=== PATIENT | female | born 1995 | race Caucasian/White ===

== ENCOUNTER 2017-01-02 07:38 | Emergency (ER) | payer OTHER ==
[~2017-01-02] VITALS: Ht 165.1 cm; Wt 80.0 kg
[2017-01-02 07:40] VITALS: Ht 165.1 cm; Wt 80.0 kg
[2017-01-02 08:08] LABS: URINE BLOOD (Dip) POC 3+ (NEGATIVE)
[2017-01-02] MEDS ORDERED: PHEN-538 PO (08:17)
[2017-01-02] MEDS ORDERED: CEPH-443 PO (08:17)
--- NOTE | 2017-01-02 08:20 | ERD ---
ER Documentation Chief Complaint Date/Time DATE: 01/02/17 TIME: 08:19 Chief Complaint dysuria x 2 days HPI This 21-year-old female presents with dysuria for last 2 days. She denies fevers, vomiting, abdominal pain, flank pain. She denies vaginal discharge or pelvic pain except mild suprapubic pain. She denies any concern for STDs or known or suspected exposures ROS All systems reviewed and are negative except as per history of present illness. Medications Home Meds Active Scripts Phenazopyridine Hcl* (Pyridium*) 200 Mg Tab, 200 MG PO TID Y for URINARY PAIN, # 6 TAB Prov:BRADEN MORALES MD 01/02/17 Cephalexin* (Keflex*) 500 Mg Capsule, 500 MG PO QID for 5 Days, CAP Prov:BRADEN MORALES MD 01/02/17 Allergies Allergies: Coded Allergies: Amoxicillin (Verified Allergy, 06/20/13) Sulfa (Sulfonamide Antibiotics) (Verified Allergy, 06/20/13) Uncoded Allergies: NELDICON (Allergy, 06/20/13) RONDEC (Allergy, 06/20/13) PMhx/Soc Medical and Surgical Hx: pt denies Medical Hx, pt denies Surgical Hx History of Surgery: No Anesthesia Reaction: No Hx Neurological Disorder: No Hx Respiratory Disorders: No Hx Cardiac Disorders: No Hx Psychiatric Problems: No Hx Miscellaneous Medical Probl: No Hx Alcohol Use: No Hx Substance Use: No Hx Tobacco Use: No Physical Exam Vitals Vital Signs Date Time Temp Pulse Resp B/P Pulse Ox O2 Delivery O2 Flow Rate FiO2 01/02/17 07:40 97.8 68 18 118/58 99 Physical Exam Const: [] Alert, [id number] per Head: Atraumatic Eyes: Normal Conjunctiva ENT: Normal External Ears, Nose and Mouth. Neck: Full range of motion..~ No meningismus. Resp: Clear to auscultation bilaterally Cardio: Regular rate and rhythm, no murmurs Abd: Soft, non tender, non distended. Normal bowel sounds Skin: No petechiae or rashes Back: No midline or flank tenderness Ext: No cyanosis, or edema Neur: Awake and alert Psych: Normal Mood and Affect Results 24 hrs Laboratory Tests Test 01/02/17 08:11 Bedside Urine pH (LAB) 6.0 Bedside Urine Protein (LAB) 2+ Bedside Urine Glucose (UA) Negative Bedside Urine Ketones (LAB) Negative Bedside Urine Blood 3+ Bedside Urine Nitrite (LAB) Positive Bedside Urine Leukocyte Esterase (L 1+ Current Medications Medications (Trade) Dose Ordered Sig/Cyrus Route PRN Reason Start Time Stop Time Status Last Admin Dose Admin Cephalexin (Keflex) 500 mg ONCE ONCE PO 01/02/17 08:30 01/02/17 08:31 01/02/17 08:12 Phenazopyridine HCl (Pyridium) 200 mg ONCE ONCE PO 01/02/17 08:30 01/02/17 08:31 01/02/17 08:12 Procedures/MDM Urine consistent with signs of infection blood glucose. HCG is negative. Patient was given Keflex and Pyridium here in the ED and will be discharged home the course of Pyridium, Keflex and instructions for clear fluids. Patient' s signs and symptoms consistent with UTI without signs of symptoms to suggest PID, tubo-ovarian abscess, appendicitis, additional causes of abdominal pain or dysuria. She is advised to return for fevers, vomiting, abdominal pain, new worsening symptoms. The patient was stable with no new complaints during the ER course. Clinically, there is no current evidence to suggest meningitis, sepsis, acute abdomen, pneumonia, acute coronary syndrome, pulmonary embolism, or any other emergent condition appearing to require further evaluation or hospitalization. The patient should certainly return for any new or worsening symptoms per the aftercare instructions. They should otherwise follow-up with her primary care doctor for reevaluation this week. Departure Diagnosis: Primary Impression: UTI (urinary tract infection) Urinary tract infection type: acute cystitis Hematuria presence: without hematuria Qualified Code: N30.00 - Acute cystitis without hematuria Condition: Stable Patient Instructions: Understanding Urinary Tract Infections (UTIs) Additional Instructions: Urine shows infection today. Recheck for fevers, vomiting, new worsening symptoms with primary care doctor. Drink plenty of fluids at home. BRADEN MORALES MD Jan 02, 2017 08:20
[2017-01-02] MEDS ORDERED: PHENAZOPYRIDINE 100 MG TAB PO ONE (08:30)
[2017-01-02] MEDS ORDERED: CEPHALEXIN 500 MG CAP PO ONE (08:30)
[2017-01-02 08:45] LABS: ADD UMIC YES; URINE BILIRUBIN (Dip) NEGATIVE (NEGATIVE); URINE BLOOD (Dip) 3+ (NEGATIVE); URINE COLOR LT. YELLOW (YELLOW); URINE GLUCOSE (Dip) NEGATIVE (NEGATIVE); URINE KETONES (Dip) NEGATIVE (NEGATIVE); URINE LEUKOCYTE ESTERASE (Dip) TRACE (NEGATIVE); URINE NITRITE (Dip) POSITIVE (NEGATIVE); URINE TOTAL PROTEIN (Dip) 2+ (NEGATIVE); URINE UROBILINOGEN (Dip) 0.2 E.U./dL (0.1-1.0)
[2017-01-02 09:16] LABS: URINE RBCS >50 /HPF (0)
[2017-01-02 09:17] LABS: BACTERIA,URINE MANY
== END 2017-01-02 08:33 | disposition home or self-care (01) ==
LOC: FTE 07:38
DX: N30.00 Acute cystitis without hematuria (principal); R10.2 Pelvic and perineal pain
CPT/HCPCS: 81001; Z7502; Z7610; 81003; 99283